=== PATIENT | male | born 1960 | race Caucasian/White ===

== ENCOUNTER 2022-07-23 06:28 | Emergency (ER) | payer BC, OTHER ==
[~2022-07-23] VITALS: Ht 190.5 cm; Wt 113.4 kg
[2022-07-23 06:58] VITALS: BP_SYST 155
--- NOTE | 2022-07-23 07:02 | NUR ---
URINE SENT TO LAB
--- NOTE | 2022-07-23 07:05 | NUR ---
Patient to ER bed H1 to gown for evaluation. Side rails up.
--- NOTE | 2022-07-23 07:06 | NUR ---
Assumed care of patient whom appears in no acute distress at this time. VSS. Report received from LAVON Villalpando.
--- NOTE | 2022-07-23 07:10 | NUR ---
Patient came in from home c/o right flank pain that started approx 0300. Patient states hx of RA diagnosed Sep 2020. Pt is currently taking methotrexate, prednisone. Denies fever. States vomited shortly after arrival to ED 0730. VSS. A&Ox4, calm and cooperative. Care will be given as ordered by provider.
--- NOTE | 2022-07-23 07:13 | NUR ---
ER Dr. Napoles at bedside examining patient.
[2022-07-23] MEDS ORDERED: ONDANSETRON HCL 4 MG/2 ML VIAL IVP ONE (07:15)
[2022-07-23] MEDS ORDERED: MORPHINE 4 MG INJ. 4 MG/ML VIAL IVP ONE (07:15)
[2022-07-23] MEDS ORDERED: NACL 0.9% 1,000 ML IV ONE (07:15)
[2022-07-23] MEDS ORDERED: KETOROLAC TROMETHAMINE 30 MG VIAL IVP ONE (07:30)
[2022-07-23 10:27] LABS: BASOPHILS % (AUTO) 0.2 % (0.0-2.0); EOSINOPHILS % (AUTO) 0.2 % (0.0-4.0); HEMATOCRIT 44.9 % (36-54); HEMOGLOBIN 14.7 g/dL (14.0-18.0); LYMPHOCYTES # (AUTO) 0.6 K/uL (1.0-5.5); LYMPHOCYTES % (AUTO) 5.6 % (20.5-51.5); MEAN CORPUSCULAR HEMOGLOBIN 30 pg (27-31); MEAN CORPUSCULAR HGB CONC 33 % (32-36); MEAN CORPUSCULAR VOLUME 91 fL (79.0-98.0); MONOCYTES # (AUTO) 0.7 K/uL (0.0-1.0); MONOCYTES % (AUTO) 6.5 % (1.7-9.3); NEUTROPHILS # (AUTO) 9.7 K/uL (1.8-7.7); NEUTROPHILS % (AUTO) 87.5 % (40.0-70.0); PLATELET COUNT (AUTO) 128 K/uL (130-430); RED BLOOD CELL COUNT(AUTO) 4.93 MIL/uL (4.2-6.2); WHITE BLOOD COUNT (AUTO) 11.1 K/uL (4.8-10.8)
[2022-07-23 11:04] LABS: CALCIUM 8.7 mg/dL (8.4-11.0); CREATININE 1.27 mg/dL (0.55-1.30)
[2022-07-23 11:17] LABS: ALBUMIN 3.7 g/dL (3.4-4.8); TOTAL BILIRUBIN 0.3 mg/dL (0.0-1.0)
[2022-07-23] MEDS ORDERED: HYDR-3919 PO ×2 (11:31)
[2022-07-23] MEDS ORDERED: HYDR-3917 PO (11:50)
--- NOTE | 2022-07-23 12:27 | NUR ---
Patient given written and verbal discharge instructions and verbalizes understanding. ER DR. VEGA NUGENT discussed with patient the results and treatment provided. Patient in stable condition. ID arm band removed. IV catheter removed intact and dressing applied, no active bleeding. Rx of NORCO given. Patient educated on pain management and to follow up with PMD. Pain Scale 4/10. Opportunity for questions provided and answered. Medication side effect fact sheet provided.
== END 2022-07-23 12:27 | disposition home or self-care (01) ==
LOC: SED 06:28
DX: N23 Unspecified renal colic (principal); N20.0 Calculus of kidney; R11.0 Nausea; Z79.899 Other long term (current) drug therapy
CPT/HCPCS: 99284; 74176; 96374; 96375; 96361; 80053; 85025; 36415; 76376; J1885; J2405; J2270; J7030